=== PATIENT | male | born 1950 | race Caucasian/White ===

== ENCOUNTER 2018-03-01 22:02 | Inpatient (IN) | payer MEDICARE, MEDICAID ==
[~2018-03-01] VITALS: Ht 180.3 cm; Wt 50.0 kg
[2018-03-01] MEDS ORDERED: morphine 4 MG/ML inj SYRINge IV ONE (22:15)
[2018-03-01] MEDS ORDERED: ondansetron/PF 4mg/2ml inj IV ONE (22:15)
[2018-03-01 22:42] LABS: BASOPHILS # (AUTO) 0.1 X10'3 (0-0.2); BASOPHILS % (AUTO) 0.5 % (0-1); EOSINOPHILS # (AUTO) 0.3 X10'3 (0-0.9); EOSINOPHILS % (AUTO) 2.3 % (0-6); HEMATOCRIT 47.5 % (42.0-52.0); HEMOGLOBIN 15.8 g/dl (14.0-17.9); LYMPHOCYTES # (AUTO) 1.4 X10'3 (1.1-4.8); LYMPHOCYTES % (AUTO) 11.2 % (21-51); MEAN CORPUSCULAR HEMOGLOBIN 29.9 PG (27.0-31.0); MEAN CORPUSCULAR HGB CONC 33.3 % (33.0-36.5); MONOCYTES # (AUTO) 0.8 X10'3 (0-0.9); MONOCYTES % (AUTO) 6.5 % (2-12); NEUTROPHILS # (AUTO) 9.7 X10'3 (1.8-7.7); NEUTROPHILS % (AUTO) 79.5 % (42-75); RED BLOOD COUNT 5.28 X10'6 (4.70-6.10); RED CELL DISTRIBUTION WIDTH 14.4 % (11.5-14.5); WHITE BLOOD COUNT 12.2 X10'3 (4.5-11.0)
[2018-03-01 22:51] LABS: INR 1.1 INR; PARTIAL THROMBOPLASTIN TIME 26 SECONDS (22-32); PROTHROMBIN TIME 10.9 SECONDS (9.0-12.0)
[2018-03-01 22:59] LABS: ALANINE AMINOTRANSFERASE 23 U/L (12-78); ALBUMIN/GLOBULIN RATIO 1.1 (1.1-1.5); ALKALINE PHOSPHATASE 103 IU/L (46-116); ANION GAP 13 (8-16); ASPARTATE AMINO TRANSFERASE 16 U/L (10-37); BILIRUBIN,TOTAL 0.6 MG/DL (0.1-1.0); BLOOD UREA NITROGEN 7 MG/DL (7-18); BUN/CREATININE RATIO 4.9 (5.4-32.0); CALCIUM 9.6 MG/DL (8.5-10.1); CHLORIDE 104 MMOL/L (99-107); CREATINE KINASE 116 U/L (39-308); CREATININE 1.44 MG/DL (0.60-1.10); GLUCOSE 151 MG/DL (70-104); MAGNESIUM 2.3 MG/DL (1.5-2.4); POTASSIUM 4.1 MMOL/L (3.5-5.1); SODIUM 140 MMOL/L (135-145); TOTAL CARBON DIOXIDE 23.5 MMOL/L (24-32); TOTAL PROTEIN 7.5 G/DL (6.4-8.2); eGFR 49 ML/MIN
[2018-03-01 23:17] LABS: CLARITY,URINE CLEAR (Clear); COLOR,URINE YELLOW (Yellow); GLUCOSE, URINE NEGATIVE (Neg); KETONES,URINE NEGATIVE (Neg); LEUKOCYTE ESTERASE ,URINE NEGATIVE (Neg); NITRITES, URINE NEGATIVE (Neg); OCCULT BLOOD,URINE MODERATE (Neg); PH,URINE 5.5 (4.8-8.0); PROTEIN,URINE 30 mg/dl (Neg); UROBILINOGEN,URINE 0.2 E.U/dL (0.2-1.0)
[2018-03-01 23:27] LABS: UA COLLECTION TYPE URINAL
[2018-03-01 23:28] LABS: BACTERIA,URINE NONE SEEN /HPF (Neg); RBC,URINE 0-2 /HPF (0-2); SQUAMOUS EPITHELIAL CELL,UR FEW /LPF (FEW); WBC,URINE 0-4 /HPF (0-4)
[2018-03-01] MEDS ORDERED: NO HOME MEDS (23:31)
[2018-03-01 23:58] LABS: PLATELET COUNT 216 X10'3 (140-440)
[2018-03-02] VITALS (27 sets, daily range): BP systolic 93–163; BP diastolic 73–115
[2018-03-02] MEDS ORDERED: morphine 4 MG/ML inj SYRINge IV ONE (01:00)
[2018-03-02] MEDS: normal saline 1000ml 1,000 ML IV SCH ×3 (01:06→21:06)
[2018-03-02] MEDS ORDERED: acetaminophen 325mg tablet PO PRN ×2 (01:10→11:55)
[2018-03-02] MEDS ORDERED: morphine 10mg/ml inj. IV PRN (01:10)
[2018-03-02] MEDS ORDERED: mag hydrox/Alum hydrox/simeth 30ml oral suspension PO PRN (01:10)
[2018-03-02] MEDS ORDERED: magnesium hydroxide 30ml (MOM) UD suspension PO PRN ×2 (01:10→11:55)
[2018-03-02] MEDS ORDERED: ondansetron/PF 4mg/2ml inj IV PRN (01:10)
[2018-03-02 01:40] LABS: HEMOGLOBIN A1C 5.4 % (4.5-6.2)
[2018-03-02] MEDS ORDERED: enoxaparin 40mg/0.4ml syringe SUBCUT SCH (02:25)
[2018-03-02] MEDS: metoprolol tartrate 12.5mg (1/2 tablet) PO SCH ×4 (02:38→20:00)
[2018-03-02] MEDS ORDERED: heparin, porcine 5000 units/ml vial SQ SCH (08:00)
[2018-03-02] MEDS ORDERED: FENT-91 TP (08:04)
[2018-03-02] MEDS ORDERED: heparin 10,000 units/1 ML INJ IV PRN (08:05)
[2018-03-02] MEDS ORDERED: heparin 10,000 units/1 ML INJ IV ONE (08:05)
[2018-03-02] MEDS ORDERED: midazolam 2 mg/2 ml injection ONE (08:43)
[2018-03-02] MEDS ORDERED: fentaNYL/PF 50MCG/1 ML 2ML syringe ONE (08:43)
[2018-03-02] MEDS ORDERED: LIDOcaine 1% 30ml preserv. free vial ONE (08:43)
[2018-03-02] MEDS ORDERED: iohexol 350 MG/ML 50ML vial IV ONE (08:43)
[2018-03-02] MEDS ORDERED: iohexol 350MG/ML 100ml bottle IV ONE (08:43)
[2018-03-02 09:12] LABS: BASOPHILS % (AUTO) 0.2 % (0-1); EOSINOPHILS # (AUTO) 0.3 X10'3 (0-0.9); EOSINOPHILS % (AUTO) 1.5 % (0-6); HEMATOCRIT 46.3 % (42.0-52.0); HEMOGLOBIN 15.4 g/dl (14.0-17.9); LYMPHOCYTES # (AUTO) 0.6 X10'3 (1.1-4.8); LYMPHOCYTES % (AUTO) 3.5 % (21-51); MEAN CORPUSCULAR HEMOGLOBIN 30.2 PG (27.0-31.0); MEAN CORPUSCULAR HGB CONC 33.3 % (33.0-36.5); MEAN CORPUSCULAR VOLUME 90.6 FL (78-98); MEAN PLATELET VOLUME 11.3 FL (7.4-10.4); MONOCYTES # (AUTO) 1.3 X10'3 (0-0.9); NEUTROPHILS % (AUTO) 87.8 % (42-75); PLATELET COUNT 227 X10'3 (140-440); RED BLOOD COUNT 5.12 X10'6 (4.70-6.10); RED CELL DISTRIBUTION WIDTH 14.2 % (11.5-14.5); WHITE BLOOD COUNT 18.2 X10'3 (4.5-11.0)
[2018-03-02] MEDS ORDERED: nitroGLYCERIN-Tridil 50MG/D5W 250 ML IV ONE (09:15)
[2018-03-02] MEDS ORDERED: metoprolol tartrate 1mg/ml inj IV ONE (09:15)
[2018-03-02 09:24] LABS: INR 1.1 INR; PARTIAL THROMBOPLASTIN TIME 36 SECONDS (22-32); PROTHROMBIN TIME 11.4 SECONDS (9.0-12.0)
[2018-03-02] MEDS ORDERED: hydrALAZINE 20mg/ml inj. IV ONE (09:24)
[2018-03-02] MEDS ORDERED: digoxin 250mcg/ml 2ml ampule ONE (09:34)
[2018-03-02 09:46] LABS: LARGE PLATELETS FEW; PLATELET ESTIMATE NORMAL
[2018-03-02 11:31] LABS: ABG HCO3 18.6 mmol/L (22.0-26.0); ABG OXYGEN SATURATION 91.8 % (95-98); ABG PCO2 (T) 41.8 mmHg (35.0-48.0); ABG PH (T) 7.266 (7.350-7.450); ALLEN'S TEST Positive; FCOHb 0.2 % (0.5-1.5); FMetHb 0.3 % (0.3-1.12); FO2Hb 91.3 % (94-100); PEEP 10 cm H2O; RESPIRATORY RATE 12 b/min; TOTAL HEMOGLOBIN 15.8 G/dl (14.0-18.0)
[2018-03-02] MEDS ORDERED: OXAZEpam 15mg capsule PO PRN (11:55)
[2018-03-02] MEDS ORDERED: nitroGLYCERIN 0.4mg SUBLingual tab SL PRN (11:55)
[2018-03-02] MEDS ORDERED: cyclobenzaprine 10mg tablet PO PRN (11:55)
[2018-03-02] MEDS ORDERED: proCHLORperazine 10 MG/2 ml inj IV PRN (11:55)
[2018-03-02] MEDS: nitroGLYCERIN-Tridil 50MG/D5W 250 ML IV SCH (11:55)
[2018-03-02] MEDS ORDERED: HYDROcodone/acetaminophen 10/325mg tab PO PRN (11:55)
[2018-03-02] MEDS ORDERED: sodium chloride 0.45% 1,000 ML IV SCH (12:00)
[2018-03-02] MEDS: morphine 4 MG/ML inj SYRINge IV PRN ×2 (13:18→16:57)
[2018-03-02] MEDS: Protein Shake (high protein) 240ml (8oz) cup PO SCH (18:00)
[2018-03-02] MEDS: docusate sod 100mg capsule PO SCH (20:00)
[2018-03-02] MEDS: carvedilol 6.25mg tablet PO SCH (20:17)
[2018-03-02] MEDS: HYDROcodone/acetaminophen 10/325mg tab PO PRN (20:18)
[2018-03-03] VITALS (14 sets, daily range): BP systolic 103–171; BP diastolic 67–118
[2018-03-03 03:40] LABS: ABG HCO3 25.2 mmol/L (22.0-26.0); ABG OXYGEN SATURATION 94.9 % (95-98); ABG PCO2 (T) 38.8 mmHg (35.0-48.0); ABG PH (T) 7.432 (7.350-7.450); ABG PO2 (T) 79.9 mmHg (83-108); FCOHb 0.3 % (0.5-1.5); FMetHb 0.2 % (0.3-1.12); FO2Hb 94.4 % (94-100); MINUTE VOLUME 11 L/min; PATIENT TEMPERATURE 37.1; PEEP 5 cm H2O; RESPIRATORY RATE 20 b/min; RESPIRATORY RATE (OBSERVED) 20 b/min; TOTAL HEMOGLOBIN 12.4 G/dl (14.0-18.0)
[2018-03-03] MEDS: metoprolol tartrate 12.5mg (1/2 tablet) PO SCH ×2 (05:40→08:49)
[2018-03-03 06:27] LABS: BASOPHILS % (AUTO) 0.2 % (0-1); EOSINOPHILS % (AUTO) 0 % (0-6); HEMATOCRIT 43.1 % (42.0-52.0); HEMOGLOBIN 14.6 g/dl (14.0-17.9); LYMPHOCYTES # (AUTO) 0.8 X10'3 (1.1-4.8); LYMPHOCYTES % (AUTO) 4.4 % (21-51); MEAN CORPUSCULAR HEMOGLOBIN 30.7 PG (27.0-31.0); MEAN CORPUSCULAR HGB CONC 33.8 % (33.0-36.5); MEAN CORPUSCULAR VOLUME 90.9 FL (78-98); MEAN PLATELET VOLUME 11.6 FL (7.4-10.4); MONOCYTES # (AUTO) 0.9 X10'3 (0-0.9); MONOCYTES % (AUTO) 4.7 % (2-12); NEUTROPHILS % (AUTO) 90.7 % (42-75); PLATELET COUNT 173 X10'3 (140-440); RED BLOOD COUNT 4.74 X10'6 (4.70-6.10); RED CELL DISTRIBUTION WIDTH 14.6 % (11.5-14.5); WHITE BLOOD COUNT 18.8 X10'3 (4.5-11.0)
[2018-03-03] MEDS: HYDROcodone/acetaminophen 10/325mg tab PO PRN ×2 (06:50→12:57)
[2018-03-03 07:03] LABS: ALANINE AMINOTRANSFERASE 15 U/L (12-78); ALBUMIN 3.2 G/DL (3.4-5.0); ALBUMIN/GLOBULIN RATIO 0.9 (1.1-1.5); ALKALINE PHOSPHATASE 87 IU/L (46-116); ANION GAP 13 (8-16); ASPARTATE AMINO TRANSFERASE 36 U/L (10-37); BILIRUBIN,TOTAL 0.6 MG/DL (0.1-1.0); BLOOD UREA NITROGEN 27 MG/DL (7-18); BUN/CREATININE RATIO 13.6 (5.4-32.0); CHLORIDE 105 MMOL/L (99-107); CHOL/HDL RATIO 2.8 (0.00-4.99); CHOLESTEROL 121 MG/DL (0-200); CREATININE 1.98 MG/DL (0.60-1.10); GLUCOSE 113 MG/DL (70-104); HDL CHOLESTEROL 44 MG/DL (35-60); LDL CHOLESTEROL 64 MG/DL (50-100); POTASSIUM 5.1 MMOL/L (3.5-5.1); SODIUM 142 MMOL/L (135-145); TOTAL CARBON DIOXIDE 23.6 MMOL/L (24-32); TOTAL PROTEIN 6.7 G/DL (6.4-8.2); TRIGLYCERIDES 81 MG/DL (20-135); eGFR 34 ML/MIN
[2018-03-03 07:40] LABS: PLATELET ESTIMATE NORMAL
[2018-03-03 07:41] LABS: GIANT PLATELET FEW; LARGE PLATELETS FEW
[2018-03-03] MEDS: docusate sod 100mg capsule PO SCH (08:00)
[2018-03-03] MEDS ORDERED: lisinopril 2.5mg tablet PO SCH (08:00)
[2018-03-03] MEDS ORDERED: enoxaparin 40mg/0.4ml syringe SQ SCH (08:00)
[2018-03-03] MEDS: carvedilol 6.25mg tablet PO SCH (08:49)
[2018-03-03] MEDS: Protein Shake (high protein) 240ml (8oz) cup PO SCH ×2 (08:49→18:00)
[2018-03-03] MEDS: nitroGLYCERIN-Tridil 50MG/D5W 250 ML IV SCH (11:55)
[2018-03-03] MEDS ORDERED: DOPamine 400mg/D5W 250ml 250 ML IV ONE (14:29)
[2018-03-03 14:56] LABS: ABG BASE EXCESS -0.5 mmol/L (-2.0-3.0); ABG HCO3 26.2 mmol/L (22.0-26.0); ABG OXYGEN SATURATION 89.2 % (95-98); ABG PCO2 (T) 50.7 mmHg (35.0-48.0); ABG PH (T) 7.331 (7.350-7.450); ABG PO2 (T) 56.9 mmHg (83-108); FCOHb 0.2 % (0.5-1.5); FLOW 6 L/min; FMetHb 0.2 % (0.3-1.12); FO2Hb 88.8 % (94-100); TOTAL HEMOGLOBIN 15.5 G/dl (14.0-18.0)
[2018-03-03 15:14] LABS: CLARITY,URINE SLIGHTLY CLOUDY (Clear); COLOR,URINE YELLOW (Yellow); GLUCOSE, URINE NEGATIVE (Neg); KETONES,URINE NEGATIVE (Neg); LEUKOCYTE ESTERASE ,URINE NEGATIVE (Neg); NITRITES, URINE NEGATIVE (Neg); OCCULT BLOOD,URINE LARGE (Neg); PH,URINE 5.5 (4.8-8.0); PROTEIN,URINE 100 mg/dl (Neg); UROBILINOGEN,URINE 0.2 E.U/dL (0.2-1.0)
[2018-03-03 15:16] LABS: UA COLLECTION TYPE FOLEY CATH
[2018-03-03 15:32] LABS: RBC,URINE 50-100 /HPF (0-2)
[2018-03-03 15:34] LABS: SQUAMOUS EPITHELIAL CELL,UR FEW /LPF (FEW)
[2018-03-03 15:35] LABS: BACTERIA,URINE 2+ /HPF (Neg); MUCUS STRANDS MODERATE /LPF (Neg)
[2018-03-03] MEDS ORDERED: levoFLOXACIN-Levaquin 750MG/D5 150 ML IV SCH (15:45)
[2018-03-03] MEDS ORDERED: morphine 10mg/ml inj. IV PRN (17:30)
[2018-03-03] MEDS ORDERED: acetaminophen 325mg tablet PO PRN (17:30)
[2018-03-03] MEDS ORDERED: morphine 10 MG/5 ML UD oral solution PO PRN (17:30)
[2018-03-03] MEDS ORDERED: LORazepam 2 mg/ml vial IV PRN (17:30)
[2018-03-03] MEDS ORDERED: docusate sod 100mg capsule PO SCH (20:00)
[2018-03-03] MEDS: morphine 4 MG/ML inj SYRINge IV PRN (23:24)
[2018-03-04] MEDS: Protein Shake (high protein) 240ml (8oz) cup PO SCH ×3 (08:00→18:21)
[2018-03-04 10:00] VITALS: BP 136/90
[2018-03-04] MEDS: morphine 4 MG/ML inj SYRINge IV PRN ×5 (10:01→23:01)
[2018-03-04] MEDS: HYDROcodone/acetaminophen 10/325mg tab PO PRN (15:07)
[2018-03-05] MEDS: morphine 4 MG/ML inj SYRINge IV PRN ×4 (02:49→17:22)
[2018-03-05] MEDS ORDERED: morphine 10 MG/5 ML UD oral solution PO PRN (07:50)
[2018-03-05] MEDS ORDERED: atropine sulfate 1% ophthalmic drops SL PRN (07:50)
[2018-03-05] MEDS ORDERED: LORazepam 2 mg/ml vial IV PRN (07:50)
[2018-03-05] MEDS: Protein Shake (high protein) 240ml (8oz) cup PO SCH ×3 (08:20→18:00)
[2018-03-05 11:23] VITALS: BP 151/102
== END 2018-03-05 18:45 | DRG 280 ==
LOC: ER 22:02 → ED HOLD 03-02 01:06 → ORTHO 4S 03-02 01:40 → ICU 2S 03-02 10:13 → ORTHO 4S 03-03 21:40
PROVIDERS: ADMIT Internal Medicine; ATTEND Family Medicine
PROC: 4A023N7 Measurement of Cardiac Sampling and Pressure, Left Heart, Percutaneous Approach (ICD-10-PCS; principal; 2018-03-02)
PROC: B2111ZZ Fluoroscopy of Multiple Coronary Arteries using Low Osmolar Contrast (ICD-10-PCS; 2018-03-02)
PROC: B2151ZZ Fluoroscopy of Left Heart using Low Osmolar Contrast (ICD-10-PCS; 2018-03-02)
PROC: 5A09357 Assistance with Respiratory Ventilation, Less than 24 Consecutive Hours, Continuous Positive Airway Pressure (ICD-10-PCS; 2018-03-02)
DX: I21.4 Non-ST elevation (NSTEMI) myocardial infarction (principal); S72.001A Fracture of unspecified part of neck of right femur, initial encounter for closed fracture; E43 Unspecified severe protein-calorie malnutrition; J18.9 Pneumonia, unspecified organism; J96.00 Acute respiratory failure, unspecified whether with hypoxia or hypercapnia; Z68.1 Body mass index [BMI] 19.9 or less, adult; R64 Cachexia; I51.81 Takotsubo syndrome; N39.0 Urinary tract infection, site not specified; Z66 Do not resuscitate; I69.322 Dysarthria following cerebral infarction; I95.9 Hypotension, unspecified; E78.00 Pure hypercholesterolemia, unspecified; F12.90 Cannabis use, unspecified, uncomplicated; E86.0 Dehydration; I50.9 Heart failure, unspecified; I11.0 Hypertensive heart disease with heart failure; Z51.5 Encounter for palliative care; W18.39XA Other fall on same level, initial encounter; Z79.02 Long term (current) use of antithrombotics/antiplatelets; Y93.89 Activity, other specified; Y92.89 Other specified places as the place of occurrence of the external cause; Y99.8 Other external cause status
CPT/HCPCS: 36415; 36600; 71045; 73502; 80053; 80061; 81001; 82550; 82803; 83036; 83735; 84484; 85018; 85025; 85347; 85610; 85730; 87040; 87070; 87077; 87088; 87186; 92616; 93005; 93306; 93458; 94660; 94760; 96374; 96375; 99152; 99153; 99285; A4357; A4620; A6212; A6213; A6250; A6257; C1758; C1760; C1769; J0360; J1160; J1265; J1644; J1650; J1956; J2250; J2270; J2405; J3010; J3490; J7030; Q9967